=== PATIENT | female | born 1955 | race Two or more races ===

== ENCOUNTER 2017-05-25 13:29 | Inpatient (IN) | payer MEDICAID ==
[~2017-05-25] VITALS: Ht 160 cm; Wt 106.1 kg
[2017-05-25] MEDS ORDERED: NITROGLYCERIN PACKET 1 GM PACKET ONE (13:36)
[2017-05-25] MEDS ORDERED: ASPIRIN EC 325 MG TABLET.DR PO ONE (13:36)
--- NOTE | 2017-05-25 13:40 | NUR ---
BB RA 60 CHEST PAIN X4 DAY NON RADIATING GIVEN 162 ASA AND 3 NITRO IN FIELD. NAD NOTED. VSS. SEEN BY MD FOR EVAL. IV ACCESS CLINICAL APPEALS SPECIALIST. SAFETY AND COMFORT MEASURES PROVIDED. WILL MONITOR.
[2017-05-25] MEDS ORDERED: ASPIRIN 325 MG TABLET PO ONE (14:00)
[2017-05-25] MEDS ORDERED: NITROGLYCERIN PACKET 1 GM PACKET TD ONE (14:00)
[2017-05-25 14:12] LABS: BASOPHILS # (AUTO) 0.1 /CMM (0.0-0.2); BASOPHILS % (AUTO) 0.9 % (0.0-2.0); EOSINOPHILS # (AUTO) 0.2 /CMM (0.0-0.7); EOSINOPHILS % (AUTO) 2.7 % (0.0-6.0); HEMATOCRIT 40 % (33-45); HEMOGLOBIN 13.5 g/dL (11.5-14.8); LYMPHOCYTES # (AUTO) 2.1 /CMM (0.8-4.8); LYMPHOCYTES % (AUTO) 35.3 % (20.0-44.0); MEAN CORPUSCULAR HEMOGLOBIN 32 PG (26.0-33.0); MEAN CORPUSCULAR HGB CONC 34 g/dl (31.0-36.0); MEAN CORPUSCULAR VOLUME 92 fL (82-100); MONOCYTES # (AUTO) 0.5 /CMM (0.1-1.30); MONOCYTES % (AUTO) 9.1 % (2.0-12.0); NEUTROPHILS # (AUTO) 3.1 /CMM (1.8-8.9); PLATELET COUNT (AUTO) 189 /CMM (150-450); RDW COEFFICIENT OF VARIATION 13.2 (11.5-15.0); RED BLOOD CELL COUNT(AUTO) 4.28 MIL/uL (4.0-5.2); WHITE BLOOD COUNT (AUTO) 5.9 K/uL (4.3-11.0)
[2017-05-25] MEDS ORDERED: BENA10TA2 PO (14:16)
[2017-05-25] MEDS ORDERED: SITA1TAB6 PO (14:16)
[2017-05-25] MEDS ORDERED: GLIP10TA11 PO (14:16)
[2017-05-25 14:26] LABS: CALCIUM, SERUM 8.9 mg/dL (8.5-10.1); CARBON DIOXIDE 30 mmol/L (21-32); CHLORIDE 102 mmol/L (98-107); CREATININE 0.7 mg/dL (0.6-1.3); GLUCOSE 140 mg/dL (74-106); POTASSIUM 3.8 mmol/L (3.5-5.1); SODIUM SERUM 137 mmol/L (136-145); UREA NITROGEN, BLOOD 15 mg/dL (7-18)
[2017-05-25 14:31] LABS: INR 0.93 (0.87-1.13); PROTHROMBIN TIME 9.7 SECS (9.5-12.7)
[2017-05-25 14:32] LABS: TROPONIN I < 0.017 ng/mL (0.00-0.056)
[2017-05-25 14:34] LABS: ALANINE AMINOTRANSFERASE 24 U/L (12-78); ALBUMIN 3.7 g/dL (3.4-5.0); ALKALINE PHOSPHATASE 73 U/L (46-116); ASPARTATE AMINOTRANSFERASE 16 U/L (15-37); BILIRUBIN,DIRECT 0.1 mg/dL (0.0-0.2); BILIRUBIN,TOTAL 0.3 mg/dL (0.2-1.0); TOTAL PROTEIN, SERUM 7.6 g/dL (6.4-8.2)
--- NOTE | 2017-05-25 14:45 | NUR ---
[facility] paged via exchange - [email or web address]
--- NOTE | 2017-05-25 15:23 | NUR ---
NURSE UNAVAILABLE FOR REPORT.
--- NOTE | 2017-05-25 15:55 | NUR ---
REPORT GIVEN TO SHAQUILLE RN OF [phone].
[2017-05-25] MEDS ORDERED: NITROGLYCERIN 0.4 MG/TAB BOTTLE SL PRN (16:00)
[2017-05-25] MEDS ORDERED: ONDANSETRON HCL/PF 4 MG/2 ML VIAL IVP PRN (16:00)
[2017-05-25] MEDS ORDERED: ZOLPIDEM TARTRATE 5 MG TABLET PO PRN (16:00)
[2017-05-25] MEDS ORDERED: MORPHINE SULFATE INJ 2 MG/ML DISP.SYRIN IV PRN (16:00)
[2017-05-25] MEDS ORDERED: Medication Not On Formulary EA (Sitagliptin Phos/Metformin Hcl (Janumet 50-1,000 Mg Tabl PO SCH (16:00)
--- NOTE | 2017-05-25 16:30 | NUR ---
MS RN ADMITTED A 61 YEAR OLD FEMALE PATIENT ,CAME IN W/ DX OF CHEST PAIN. DENIES PAIN AT THIS TIME, LUNGS ARE CLEAR,ABDOMEN SOFT,POSITIVE BOWEL SOUNDS, WILL MONITOR PATIENT'S CONDITION.
[2017-05-25 16:48] VITALS: BP 155/80
[2017-05-25] MEDS ORDERED: PNEUMOCOCCAL 23-VAL P-SAC VAC 0.5 ML VIAL SQ ONE (17:00)
[2017-05-25 17:37] VITALS: BP 155/80
--- NOTE | 2017-05-25 18:00 | NUR ---
RN, DUE MEDS GIVEN,TOLERATED WELL.
[2017-05-25] MEDS: glipiZIDE 10 MG TABLET PO SCH (18:07)
[2017-05-25] MEDS: ASPIRIN 81 MG TAB.CHEW PO SCH (18:07)
[2017-05-25] MEDS: METOPROLOL TARTRATE 25 MG TABLET PO SCH (18:07)
[2017-05-25] MEDS: BENAZEPRIL HCL 10 MG TABLET PO SCH (18:07)
--- NOTE | 2017-05-25 19:02 | NUR ---
MS RN WAS SEEN BY DR. HORTON, AWAITING FOR ORDERS, ALL NEEDS ATTENDED.
--- NOTE | 2017-05-25 19:58 | NUR ---
RN NOTES RECEIVED PATIENT IN BED, ALERT AND ORIENTED X4, AZERI SPEAKING, CALM, NO SOB, NO COMPLAIN OF PAIN AT THIS TIME, COMPLAINING OF PALPITATIONS, SEEN BY DR. HORTON EARLIER. NO NEW ORDERS. LEFT HAND SALINE LOCK IS SECURED WITH DRESSING. CONTINENT OF BOWEL AND BLADDER, NEEDS ATTENDED, CALL LIGHT WITHIN REACH.
[2017-05-25 20:00] VITALS: BP 135/63
--- NOTE | 2017-05-25 21:24 | NUR ---
NEW ORDER OF ACCUCHECK ACHS WITH MILD SLIDING SCALE, TYLENOL 650 MG PO Q6HRS PRN
[2017-05-25] MEDS ORDERED: DEXTROSE 50%-WATER 50 ML DISP.SYRIN IV PRN (21:30)
[2017-05-25] MEDS: BLOOD SUGAR DIAGNOSTIC 1 EACH STRIP IN SCH (22:15)
[2017-05-25] MEDS: INSULIN REGULAR, HUMAN 100 UNIT/ML 3 ML VIAL SQ PRN (22:17)
--- NOTE | 2017-05-25 22:18 | NUR ---
BG 111 MG/DL, NO INSULIN GIVEN
[2017-05-25] MEDS: ACETAMINOPHEN 325 MG TABLET PO PRN (22:25)
[2017-05-26] VITALS: BP 134/74
[2017-05-26 04:00] VITALS: BP 130/67
[2017-05-26] MEDS: BLOOD SUGAR DIAGNOSTIC 1 EACH STRIP IN SCH ×2 (06:22→13:35)
--- NOTE | 2017-05-26 06:27 | NUR ---
PATIENT IS ALERT AND AWAKE, NO COMPLAIN OF CHEST PAIN, NO ADVERSE CHANGE OF CONDITION DURING SHIFT, SLEPT FOR 5 HOURS INTERMITTENTLY, ALL DUE MEDICATIONS GIVEN, CALL LIGHT WITHIN REACH.
[2017-05-26 06:30] LABS: BASOPHILS % (AUTO) 0.6 % (0.0-2.0); EOSINOPHILS # (AUTO) 0.2 /CMM (0.0-0.7); EOSINOPHILS % (AUTO) 2.7 % (0.0-6.0); HEMATOCRIT 40 % (33-45); HEMOGLOBIN 13.6 g/dL (11.5-14.8); LYMPHOCYTES # (AUTO) 1.9 /CMM (0.8-4.8); LYMPHOCYTES % (AUTO) 28.8 % (20.0-44.0); MEAN CORPUSCULAR HEMOGLOBIN 32 PG (26.0-33.0); MEAN CORPUSCULAR HGB CONC 34 g/dl (31.0-36.0); MEAN CORPUSCULAR VOLUME 93 fL (82-100); MONOCYTES # (AUTO) 0.6 /CMM (0.1-1.30); MONOCYTES % (AUTO) 8.5 % (2.0-12.0); NEUTROPHILS # (AUTO) 3.9 /CMM (1.8-8.9); NEUTROPHILS % (AUTO) 59.4 % (43.0-81.0); PLATELET COUNT (AUTO) 179 /CMM (150-450); RED BLOOD CELL COUNT(AUTO) 4.27 MIL/uL (4.0-5.2); WHITE BLOOD COUNT (AUTO) 6.6 K/uL (4.3-11.0)
[2017-05-26 06:54] LABS: CALCIUM, SERUM 8.6 mg/dL (8.5-10.1); CREATININE 0.7 mg/dL (0.6-1.3); MAGNESIUM 1.9 mg/dL (1.8-2.4); PHOSPHORUS 4.8 mg/dL (2.5-4.9); POTASSIUM 3.9 mmol/L (3.5-5.1)
[2017-05-26] MEDS: INSULIN REGULAR, HUMAN 100 UNIT/ML 3 ML VIAL SQ PRN (06:56)
--- NOTE | 2017-05-26 07:30 | NUR ---
CLOTHING SALES ASSISTANT OPENING RECEIVED PATIENT A/OX4 ZAMBIAN SPEAKING ONLY. AWAKE TO TOUCH. DENIES SOB, DIFFICULTY BREATHING AND STATES CHEST PAIN NOT NOTICEABLE ANY LONGER. PATIENT NEEDS IN REACH, TELE NSR AT THIS TIME. PATIENT APPEARS STABLE. WILL ROUND Q2H OR LESS PER NEEDS
[2017-05-26 08:00] VITALS: BP 125/70
[2017-05-26] MEDS: ASPIRIN 81 MG TAB.CHEW PO SCH (08:43)
[2017-05-26] MEDS: glipiZIDE 10 MG TABLET PO SCH (08:43)
[2017-05-26 08:44] VITALS: BP 145/79
[2017-05-26] MEDS: BENAZEPRIL HCL 10 MG TABLET PO SCH (08:44)
[2017-05-26] MEDS: METOPROLOL TARTRATE 25 MG TABLET PO SCH (08:44)
[2017-05-26] MEDS: ACETAMINOPHEN 325 MG TABLET PO PRN (08:45)
--- NOTE | 2017-05-26 08:46 | NUR ---
RIG SUPERINTENDENT NOTES PATIENT NOW COMPLAINING OF HEADACHE AND ASKING FOR TYLENOL.
[2017-05-26] MEDS ORDERED: METFORMIN XR 500 MG TAB.SR.24H PO SCH (09:00)
[2017-05-26] MEDS ORDERED: LINAGLIPTIN 5 MG TABLET PO SCH (09:00)
--- NOTE | 2017-05-26 09:54 | NUR ---
MS RN NOTES PATIENT STATES HEADACHE BETTER AT THIS TIME
--- NOTE | 2017-05-26 15:30 | NUR ---
MS SOFTWARE CONSULTANT PATIENT STABLE NO COMPLICATIONS NO CHANGES. PATIENT EDUCATED ON DC MATERIAL AND STATED UNDERSTANDING. PATIENT REFUSED FLU VACCINE SHE STATES ALREADY RECEIVED. PATIENT STATES SHE IWLL MAKE SPEAKING UNIT ASSEMBLER FOLLOW UP APPOINTMENT ON DISCHARGE DR HORTON DOES NOT TAKE PATIENT INSURANCE. IV REMOVED PRESSURE AND DRESSING APPLIED NO BLEEDING NOTED. PATIENT BELONGINGS ALL ACCOUNTED FOR AND RX GIVEN TO PATIENT. PATIENT EDUCATED ON DC MEDICATIONS AND STATED UNDERSTANDING WITH TRANSLATION FROM MARTINE NANO. PATIENT LEFT IN STABLE CONDITION.
== END 2017-05-26 15:30 | disposition home or self-care (01) | DRG 203 ==
LOC: ER 13:31 → TELE 15:26
PROVIDERS: ADMIT Internal Medicine; ATTEND Internal Medicine
DX: M94.0 Chondrocostal junction syndrome [Tietze] (principal); I10 Essential (primary) hypertension; E11.9 Type 2 diabetes mellitus without complications; E78.5 Hyperlipidemia, unspecified; Z79.84 Long term (current) use of oral hypoglycemic drugs
CPT/HCPCS: 36415; 71010-TC; 80048-TC; 80061-TC; 80076-TC; 82962-TC; 83735-TC; 84100-TC; 84484-TC; 85025-TC; 85730-TC; 87081-TC; 90732; 93307-TC; A4606; J1815; Z7610